=== PATIENT | female | born 1990 | race Caucasian/White ===

== ENCOUNTER 2018-04-25 10:55 | Inpatient (IN) | payer OTHER ==
[2018-04-25] MEDS: LACTATED RINGER'S 1,000 ML IV ×2 (13:43→23:57)
[2018-04-25] MEDS: BETAMET NA PHOS/AC(6 MG/ML) 5ML INJ IM (13:44)
[2018-04-25] MEDS: MAGNESIUM SULFATE 4 GM/100 ML 100 ML IV (13:46)
[2018-04-25] MEDS: MAGNESIUM SULFATE 20 GM/500 ML 500 ML IV (13:48)
[2018-04-25 18:49] LABS: MAGNESIUM 4.9 mg/dl (1.7-2.5)
[2018-04-26] MEDS: MAGNESIUM SULFATE 20 GM/500 ML 500 ML IV ×2 (00:01→08:45)
[2018-04-26 01:13] LABS: MAGNESIUM 5.8 mg/dl (1.7-2.5)
[2018-04-26] MEDS: MAGNESIUM HYDROXIDE 30ML CUP PO (02:55)
[2018-04-26] MEDS: LACTATED RINGER'S 1,000 ML IV ×2 (05:27→11:48)
[2018-04-26 07:47] LABS: MAGNESIUM 6.2 mg/dl (1.7-2.5)
[2018-04-26] MEDS: FERROUS SULFATE (EC) 325 MG TAB PO (08:40)
[2018-04-26] MEDS: PRENATAL VITAMIN PO (08:40)
[2018-04-26] MEDS: BETAMET NA PHOS/AC(6 MG/ML) 5ML INJ IM (13:30)
[2018-04-26 15:47] LABS: MAGNESIUM 5.5 mg/dl (1.7-2.5)
[2018-04-26 19:23] LABS: MAGNESIUM 5.2 mg/dl (1.7-2.5)
[2018-04-27] MEDS: LACTATED RINGER'S 1,000 ML IV ×4 (00:10→21:27)
[2018-04-27] MEDS: MAGNESIUM SULFATE 20 GM/500 ML 500 ML IV (00:12)
[2018-04-27 00:13] LABS: MAGNESIUM 4.9 mg/dl (1.7-2.5)
[2018-04-27 07:17] LABS: MAGNESIUM 4.5 mg/dl (1.7-2.5)
[2018-04-27] MEDS: PRENATAL VITAMIN PO (10:03)
[2018-04-27] MEDS: FERROUS SULFATE (EC) 325 MG TAB PO (10:03)
[2018-04-27 12:46] LABS: MAGNESIUM 4.1 mg/dl (1.7-2.5)
[2018-04-27] MEDS: NIFEdipine (XL) 30 MG TAB PO (15:31)
[2018-04-27] MEDS: TERBUTALINE 1 MG/ML INJ SC (16:36)
[2018-04-27] MEDS: BACITRACIN 0.5%/ZINC 28.35 GM OINT TOP ×2 (16:40→21:25)
[2018-04-28] MEDS: LACTATED RINGER'S 1,000 ML IV (02:00)
[2018-04-28 02:50] LABS: ADD UMIC YES; UR ASCORBIC ACID NEGATIVE (NEGATIVE); UR BACTERIA FEW /HPF (NONE SEEN); UR BILIRUBIN (Dip) NEGATIVE (NEGATIVE); UR BLOOD (Dip) NEGATIVE (NEGATIVE); UR CLARITY SLIGHTLY CLOUDY (CLEAR); UR COLOR YELLOW (YELLOW); UR GLUCOSE (Dip) 1+ mg/dL (NEGATIVE); UR KETONES (Dip) NEGATIVE (NEGATIVE); UR LEUKOCYTE ESTERASE (Dip) TRACE Leu/ul (NEGATIVE); UR NITRITE (Dip) NEGATIVE (NEGATIVE); UR NONSQUAMOUS EPITHELIAL CELL 2 /HPF (NONE SEEN); UR RBC 1 /HPF (0-5); UR SPECIFIC GRAVITY (Dip) 1.016 (1.003-1.030); UR SQUAMOUS EPITHELIAL CELL FEW /HPF (FEW); UR TOTAL PROTEIN (Dip) NEGATIVE (NEGATIVE); UR UROBILINOGEN (Dip) NEGATIVE (NEGATIVE); UR WBC 15 /HPF (0-5)
[2018-04-28 07:02] LABS: ADD MAN DIFF? NO
[2018-04-28 07:11] LABS: WHITE BLOOD COUNT 8.7 10^3/ul (4.8-10.8)
[2018-04-28 07:11] LABS: BASOPHILS % 0.1 % (0.0-2.0); EOSINOPHILS % 0.2 % (0.0-7.0); HEMATOCRIT 32.6 % (37.0-47.0); HEMOGLOBIN 10.9 g/dl (12.0-16.0); LYMPHOCYTES # 2.3 10^3/ul (0.8-2.9); LYMPHOCYTES % 26.1 % (15.0-51.0); MEAN CORPUSCULAR HEMOGLOBIN 31.4 pg (29.0-33.0); MEAN CORPUSCULAR HGB CONC 33.4 g/dl (32.0-37.0); MEAN CORPUSCULAR VOLUME 93.9 fl (82.0-101.0); MEAN PLATELET VOLUME 11.6 fl (7.4-10.4); MONOCYTE # 0.6 10^3/ul (0.3-0.9); MONOCYTES % 6.8 % (0.0-11.0); NEUTROPHIL # 5.8 10^3/ul (1.6-7.5); NEUTROPHILS % 66.5 % (39.0-77.0); PLATELET COUNT 134 10^3/UL (140-415); RED BLOOD COUNT 3.47 10^6/ul (4.20-5.40); RED CELL DISTRIBUTION WIDTH 13.9 % (11.5-14.5)
[2018-04-28 07:26] LABS: ALANINE AMINOTRANSFERASE 25 IU/L (13-69); ALBUMIN 2.9 g/dl (3.3-4.9); ALBUMIN/GLOBULIN RATIO 1.03; ALKALINE PHOSPHATASE 76 IU/L (42-121); ANION GAP 10 (8-16); ASPARTATE AMINO TRANSFERASE 20 IU/L (15-46); BILIRUBIN,INDIRECT 0.2 mg/dl (0-1.1); BILIRUBIN,TOTAL 0.2 mg/dl (0.2-1.3); BLOOD UREA NITROGEN 9 mg/dl (7-20); CARBON DIOXIDE 25 mmol/L (21-31); CHLORIDE 106 mmol/L (97-110); CREATININE 0.46 mg/dl (0.44-1.00); GLUCOSE 93 mg/dl (70-220); POTASSIUM 3.9 mmol/L (3.5-5.1); SODIUM 137 mmol/L (135-144); TOTAL PROTEIN 5.7 g/dl (6.1-8.1)
[2018-04-28] MEDS: NIFEdipine (XL) 30 MG TAB PO (09:00)
[2018-04-28] MEDS: DOCUSATE SODIUM 100 MG CAP PO ×2 (09:30→09:33)
[2018-04-28] MEDS: BACITRACIN 0.5%/ZINC 28.35 GM OINT TOP ×2 (09:33→21:04)
[2018-04-28] MEDS: PRENATAL VITAMIN PO (09:33)
[2018-04-28] MEDS: FERROUS SULFATE (EC) 325 MG TAB PO (09:33)
[2018-04-28] MEDS ORDERED: DOCUSATE SODIUM 100 MG CAP PO (14:30)
[2018-04-28] MEDS: NIFEdipine 10 MG CAP PO ×2 (14:45→19:10)
[2018-04-29] MEDS: NIFEdipine 10 MG CAP PO ×4 (06:00→18:00)
[2018-04-29] MEDS: PRENATAL VITAMIN PO (08:55)
[2018-04-29] MEDS: FERROUS SULFATE (EC) 325 MG TAB PO (08:55)
[2018-04-29] MEDS: BACITRACIN 0.5%/ZINC 28.35 GM OINT TOP ×2 (14:31→20:57)
[2018-04-30] MEDS: NIFEdipine 10 MG CAP PO ×3 (06:00→12:00)
[2018-04-30] MEDS: BACITRACIN 0.5%/ZINC 28.35 GM OINT TOP ×2 (08:47→21:03)
[2018-04-30] MEDS: PRENATAL VITAMIN PO (08:47)
[2018-04-30] MEDS: FERROUS SULFATE (EC) 325 MG TAB PO (08:47)
[2018-05-01] MEDS: AMOXICILLIN 500 MG CAP PO ×2 (05:42→14:05)
[2018-05-01] MEDS: PRENATAL VITAMIN PO (08:42)
[2018-05-01] MEDS: FERROUS SULFATE (EC) 325 MG TAB PO (08:42)
[2018-05-01] MEDS: BACITRACIN 0.5%/ZINC 28.35 GM OINT TOP (08:43)
== END 2018-05-01 18:25 | disposition home or self-care (01) | DRG 782 ==
LOC: OBT 10:55 → L-D 10:55 → OBT 12:30 → PP1 12:30
PROVIDERS: Obstetrics & Gynecology
DX: O26.873 Cervical shortening, third trimester (principal); O47.03 False labor before 37 completed weeks of gestation, third trimester; Z3A.32 32 weeks gestation of pregnancy
CPT/HCPCS: 76817; 76818; 80053; 81001; 83735; 85025; 87081; 87086

== ENCOUNTER 2018-05-04 10:40 | Outpatient (CLI) | payer OTHER | END 2018-05-04 12:07 | disposition home or self-care (01) | LOC: OBT 10:40 → L-D 10:40 → OBT 12:07 | DX: O62.9 Abnormality of forces of labor, unspecified (principal); Z3A.33 33 weeks gestation of pregnancy | CPT/HCPCS: 76818 ==

== ENCOUNTER 2018-06-15 17:45 | Inpatient (IN) | payer OTHER ==
[2018-06-15] MEDS ORDERED: LACTATED RINGER'S 1,000 ML IV (18:19)
[2018-06-15] MEDS ORDERED: OXYTOCIN 30 UNITS/LR 500 ML IV (18:30)
[2018-06-15] MEDS ORDERED: LIDOCAINE 1% (MPF) 30 ML INJ INJ (18:30)
[2018-06-15] MEDS ORDERED: ACETAMINOPHEN/CODEINE #3 TAB PO (18:30)
[2018-06-15] MEDS ORDERED: CARBOPROST 250 MCG INJ IM (18:30)
[2018-06-15] MEDS ORDERED: MISOPROSTOL 200 MCG TAB PR (18:30)
[2018-06-15] MEDS ORDERED: BUTORPHANOL 2 MG INJ IV (18:30)
[2018-06-15] MEDS: LACTATED RINGER'S 1,000 ML IV* ×2 (18:42→22:15)
[2018-06-15 18:56] LABS: ADD MAN DIFF? NO
[2018-06-15] MEDS: AMPICILLIN 2 GM/NS (PMX) 100 ML IVPB (18:56)
[2018-06-15 19:00] LABS: BASOPHILS % 0.2 % (0.0-2.0); EOSINOPHILS % 0.3 % (0.0-7.0); HEMATOCRIT 36.2 % (37.0-47.0); HEMOGLOBIN 12.4 g/dl (12.0-16.0); LYMPHOCYTES # 2.4 10^3/ul (0.8-2.9); LYMPHOCYTES % 23.3 % (15.0-51.0); MEAN CORPUSCULAR HEMOGLOBIN 30.7 pg (29.0-33.0); MEAN CORPUSCULAR HGB CONC 34.3 g/dl (32.0-37.0); MEAN CORPUSCULAR VOLUME 89.6 fl (82.0-101.0); MEAN PLATELET VOLUME 11.9 fl (7.4-10.4); MONOCYTE # 0.5 10^3/ul (0.3-0.9); MONOCYTES % 4.5 % (0.0-11.0); NEUTROPHIL # 7.3 10^3/ul (1.6-7.5); NEUTROPHILS % 71.3 % (39.0-77.0); PLATELET COUNT 196 10^3/UL (140-415); RED BLOOD COUNT 4.04 10^6/ul (4.20-5.40); RED CELL DISTRIBUTION WIDTH 13.6 % (11.5-14.5)
[2018-06-15 19:00] LABS: WHITE BLOOD COUNT 10.2 10^3/ul (4.8-10.8)
[2018-06-15 19:25] LABS: INR 0.98; PROTIME 13.1 Sec (11.9-14.9)
[2018-06-15 19:26] LABS: PARTIAL THROMBOPLASTIN TIME 28.1 Sec (25.0-35.0)
[2018-06-15 19:49] LABS: HEPATITIS B SURFACE ANTIGEN NEGATIVE (NEGATIVE)
[2018-06-15] MEDS ORDERED: FENTAnyl 2MCG/ML-ROPIV 0.2% 100 ML (21:02)
[2018-06-15] MEDS ORDERED: DIPHENHYDRAMINE 50 MG INJ IV (21:30)
[2018-06-15] MEDS ORDERED: NALOXONE (0.4 MG/ML) INJ IV (21:30)
[2018-06-15] MEDS ORDERED: ONDANSETRON 4 MG INJ IV (21:30)
[2018-06-15] MEDS: FENTAnyl 2MCG/ML-ROPIV 0.2% 100 ML BAG EPI (22:09)
[2018-06-15 23:06] LABS: AMPHETAMINE/METHAMPHETAMINE Negative (NEGATIVE); BARBITURATES Negative (NEGATIVE); BENZODIAZEPINES Negative (NEGATIVE); CANNABINOIDS Negative (NEGATIVE); OPIATES Negative (NEGATIVE)
[2018-06-15] MEDS: AMPICILLIN 1 GM/NS (PMX) 50 ML IVPB (23:08)
[2018-06-15 23:17] LABS: COCAINE Negative (NEGATIVE)
[2018-06-16] MEDS: OXYTOCIN 30 UNITS/LR 500 ML IV ×3 (00:56→05:29)
[2018-06-16] MEDS: AMPICILLIN 1 GM/NS (PMX) 50 ML IVPB (01:00)
[2018-06-16] MEDS: METHYLERGONOVINE 0.2 MG INJ IM (01:07)
[2018-06-16] MEDS: DEXTROSE 5%-LR 1,000 ML IV ×2 (05:27→13:27)
[2018-06-16] MEDS: LACTATED RINGER'S 1,000 ML IV* ×2 (05:27→09:54)
[2018-06-16] MEDS: IBUPROFEN 600 MG TAB PO ×4 (05:29→17:45)
[2018-06-16] MEDS ORDERED: MISOPROSTOL 200 MCG TAB PR (05:30)
[2018-06-16] MEDS ORDERED: METHYLERGONOVINE 0.2 MG INJ IM (05:30)
[2018-06-16] MEDS ORDERED: DIBUCAINE 1% 30 GM OINT PR (05:30)
[2018-06-16] MEDS ORDERED: ACETAMINOPHEN 325 MG TAB PO (05:30)
[2018-06-16] MEDS ORDERED: OXYCODONE/ASPIRIN (4.88/325) TAB PO (05:30)
[2018-06-16] MEDS ORDERED: ZOLPIDEM 5 MG TAB PO (05:30)
[2018-06-16] MEDS ORDERED: OXYTOCIN 30 UNITS/LR 500 ML IV (05:30)
[2018-06-16] MEDS ORDERED: CARBOPROST 250 MCG INJ IM (05:30)
[2018-06-16] MEDS ORDERED: ONDANSETRON 4 MG INJ IV (05:30)
[2018-06-16] MEDS ORDERED: DIPHENHYDRAMINE 50 MG INJ IV (05:30)
[2018-06-16] MEDS: BENZOCAINE 20% 56 ML SPRAY TOP (06:59)
[2018-06-16] MEDS: LANOLIN 7 GM TUBE TOP (06:59)
[2018-06-16] MEDS: WITCH HAZEL/GLYCERIN PAD PR (06:59)
[2018-06-16] MEDS: SENNA/DOCUSATE NA (8.6MG/50MG) TAB PO (09:53)
[2018-06-16 19:08] LABS: RAPID PLASMA REAGIN NONREACTIVE (NR)
[2018-06-17] MEDS: IBUPROFEN 600 MG TAB PO ×4 (00:03→17:43)
[2018-06-17 09:05] LABS: ADD MAN DIFF? NO
[2018-06-17 09:10] LABS: WHITE BLOOD COUNT 10.4 10^3/ul (4.8-10.8)
[2018-06-17 09:10] LABS: BASOPHILS % 0.3 % (0.0-2.0); EOSINOPHILS # 0.1 10^3/ul (0.0-0.5); HEMATOCRIT 36.7 % (37.0-47.0); HEMOGLOBIN 12.4 g/dl (12.0-16.0); LYMPHOCYTES # 3.4 10^3/ul (0.8-2.9); LYMPHOCYTES % 32.9 % (15.0-51.0); MEAN CORPUSCULAR HEMOGLOBIN 30.9 pg (29.0-33.0); MEAN CORPUSCULAR HGB CONC 33.8 g/dl (32.0-37.0); MEAN CORPUSCULAR VOLUME 91.5 fl (82.0-101.0); MEAN PLATELET VOLUME 11.7 fl (7.4-10.4); MONOCYTE # 0.5 10^3/ul (0.3-0.9); NEUTROPHIL # 6.3 10^3/ul (1.6-7.5); NEUTROPHILS % 60.3 % (39.0-77.0); PLATELET COUNT 183 10^3/UL (140-415); RED BLOOD COUNT 4.01 10^6/ul (4.20-5.40); RED CELL DISTRIBUTION WIDTH 13.7 % (11.5-14.5)
[2018-06-17] MEDS: SENNA/DOCUSATE NA (8.6MG/50MG) TAB PO ×2 (12:04→21:04)
[2018-06-18] MEDS: IBUPROFEN 600 MG TAB PO ×3 (00:37→13:13)
[2018-06-18] MEDS: MEASLES,MUMPS,RUBELLA VACCINE INJ SC* (09:00)
[2018-06-18] MEDS: DIPHTH/TET/ACEL PERTUSS (ADULT) 0.5 ML VIAL IM* (13:15)
== END 2018-06-18 14:15 | disposition home or self-care (01) | DRG 775 ==
LOC: OBT 17:45 → PP1 06-16 02:59 → L-D 17:47 → OBT 18:10 → L-D 18:10
PROVIDERS: Obstetrics & Gynecology
PROC: 10E0XZZ Delivery of Products of Conception, External Approach (ICD-10-PCS; principal; 2018-06-16)
PROC: 3E0234Z Introduction of Serum, Toxoid and Vaccine into Muscle, Percutaneous Approach (ICD-10-PCS; 2018-06-18)
DX: O69.1XX0 Labor and delivery complicated by cord around neck, with compression, not applicable or unspecified (principal); O99.824 Streptococcus B carrier state complicating childbirth; Z3A.39 39 weeks gestation of pregnancy; Z37.0 Single live birth; Z23 Encounter for immunization
CPT/HCPCS: 62319; 80307; 85025; 85610; 85730; 86592; 86850; 86900; 86901; 87340; 90715